=== PATIENT | female | born 1965 | race Caucasian/White ===

== ENCOUNTER → 2017-08-17 | Outpatient (CLI) | payer OTHER ==
[~2017-08-17] MED LIST: CARAFATE1 G1 PO; LEVOFLOXACIN500 MG PO; MOTRIN800 MG PO; OMEPRAZOLE20 MG PO; PEPCID20 MG PO; PYRIDIUM200 MG PO; TENORMIN0.5 MG/ML; TENORMIN25 MG PO; XANAX0.25 MG PO; ZOFRAN4 MG PO
== END | disposition home or self-care (01) ==
LOC: MAMMO 03:02
DX: Z12.31 Encounter for screening mammogram for malignant neoplasm of breast (principal)

== ENCOUNTER → 2018-03-01 | Outpatient (CLI) | payer BC ==
[2018-03-01 14:48] LABS: BASO % 0.2 % (0.0-1.0); EOS # 0.1 10*3/uL (0.0-0.4); EOS % 1.1 % (1.0-4.0); HEMATOCRIT 42.9 % (37.0-47.0); HEMOGLOBIN 13.7 g/dl (12.0-16.0); LYMPH # 1.3 10*3/uL (1.3-4.4); LYMPH % 24.4 % (27.0-41.0); MEAN CELL VOLUME 90.7 fl (81.0-99.0); MEAN CORPUSCULAR HGB CONC 31.9 g/dl (33.0-37.0); MEAN PLATELET VOLUME 9.7 fl (9.6-12.3); MONO # 0.5 10*3/uL (0.1-1.0); MONO % 8.9 % (3.0-9.0); NEUT # 3.5 10*3/uL (2.3-7.9); NEUT % 65.2 % (47.0-73.0); PLATELET COUNT AUTOMATED 253 10*3/uL (130-400); RED BLOOD COUNT 4.73 10*6/uL (4.10-5.10); RED CELL DISTRI WIDTH 12.8 % (0-14.5); WHITE BLOOD COUNT 5.4 10*3/uL (4.8-10.8)
[2018-03-01 15:27] LABS: ALBUMIN 4.1 gm/dl (3.1-4.5); ALKALINE PHOSPHATASE 85 U/L (45-117); BUN 12 mg/dl (7-24); CHLORIDE 102 mmol/L (98-107); CREATININE 1.02 mg/dL (0.55-1.02); SGOT/AST 28 IU/L (3-35); SGPT/ALT 40 U/L (12-78); SODIUM 139 mmol/L (136-145); TOTAL PROTEIN 7.5 gm/dL (6.4-8.2)
== END | disposition home or self-care (01) ==
LOC: RESCLI 08:20 → LAB 08:20
PROVIDERS: Internal Medicine
DX: Z76.89 Persons encountering health services in other specified circumstances (principal); R00.2 Palpitations; R79.89 Other specified abnormal findings of blood chemistry

== ENCOUNTER → 2018-03-22 | Outpatient (CLI) | payer BC | END | disposition home or self-care (01) | LOC: RESCLI 03:16 | DX: Z12.11 Encounter for screening for malignant neoplasm of colon (principal); Z12.31 Encounter for screening mammogram for malignant neoplasm of breast; R00.1 Bradycardia, unspecified; E78.00 Pure hypercholesterolemia, unspecified; G56.01 Carpal tunnel syndrome, right upper limb; R00.2 Palpitations; F41.9 Anxiety disorder, unspecified; Z90.710 Acquired absence of both cervix and uterus; Z90.49 Acquired absence of other specified parts of digestive tract ==

== ENCOUNTER → 2019-02-22 | Outpatient (CLI) | payer BC, OTHER | END | disposition home or self-care (01) | LOC: RESCLI 01:29 | DX: Z12.11 Encounter for screening for malignant neoplasm of colon (principal); S46.011D Strain of muscle(s) and tendon(s) of the rotator cuff of right shoulder, subsequent encounter; E66.3 Overweight; K21.9 Gastro-esophageal reflux disease without esophagitis; I47.1 Supraventricular tachycardia; E78.00 Pure hypercholesterolemia, unspecified; R73.03 Prediabetes; E55.9 Vitamin D deficiency, unspecified; R09.81 Nasal congestion; X58.XXXD Exposure to other specified factors, subsequent encounter ==

== ENCOUNTER → 2019-03-27 | Outpatient (CLI) | payer BC, OTHER | END | disposition home or self-care (01) | LOC: MAMMO 10:05 | DX: Z12.31 Encounter for screening mammogram for malignant neoplasm of breast (principal) ==

== ENCOUNTER → 2019-08-24 | Outpatient (CLI) | payer BC, OTHER | END | disposition home or self-care (01) | LOC: ORTHO 00:11 | DX: M25.511 Pain in right shoulder (principal); M79.601 Pain in right arm ==

== ENCOUNTER → 2019-10-08 | Outpatient (CLI) | payer BC, OTHER | END | disposition home or self-care (01) | LOC: LAB 08:44 → RAD 09:00 | DX: Z13.820 Encounter for screening for osteoporosis (principal); M85.80 Other specified disorders of bone density and structure, unspecified site; E55.9 Vitamin D deficiency, unspecified; G89.29 Other chronic pain; Z78.0 Asymptomatic menopausal state; Z90.710 Acquired absence of both cervix and uterus ==

== ENCOUNTER → 2019-12-13 | Outpatient (CLI) | payer BC, OTHER ==
[2019-12-13 06:32] LABS: BASO % 0.5 % (0.0-1.0); EOS # 0.2 10*3/uL (0.0-0.4); HEMATOCRIT 41.6 % (37.0-47.0); HEMOGLOBIN 13.2 g/dl (12.0-16.0); LYMPH % 26.7 % (27.0-41.0); MEAN CELL VOLUME 93.5 fl (81.0-99.0); MEAN CORPUSCULAR HGB 29.7 pg (27.0-31.0); MEAN CORPUSCULAR HGB CONC 31.7 g/dl (33.0-37.0); MONO # 0.4 10*3/uL (0.1-1.0); MONO % 10.4 % (3.0-9.0); NEUT # 2.2 10*3/uL (2.3-7.9); NEUT % 58.1 % (47.0-73.0); PLATELET COUNT AUTOMATED 273 10*3/uL (130-400); RED BLOOD COUNT 4.45 10*6/uL (4.10-5.10); RED CELL DISTRI WIDTH 12.4 % (0-14.5); WHITE BLOOD COUNT 3.7 10*3/uL (4.8-10.8)
[2019-12-13 06:43] LABS: ALBUMIN 3.7 gm/dl (3.1-4.5); ALKALINE PHOSPHATASE 82 U/L (45-117); BUN 17 mg/dl (7-24); CHLORIDE 106 mmol/L (98-107); CREATININE 0.95 mg/dL (0.55-1.02); POTASSIUM 4.1 mmol/L (3.5-5.1); SGOT/AST 18 IU/L (3-35); SGPT/ALT 24 U/L (12-78); SODIUM 140 mmol/L (136-145); TOTAL PROTEIN 7.3 gm/dL (6.4-8.2)
[2019-12-13 06:45] LABS: FREE T4 0.83 ng/dl (0.76-1.46)
[2019-12-13 06:51] LABS: THYROID STIM HORMONE (HS) 2.29 uIU/ml (0.358-4.75)
[2019-12-13 08:06] LABS: BILIRUBIN NEGATIVE (NEGATIVE); BLOOD NEGATIVE (NEGATIVE); CLARITY SL CLOUDY (CLEAR); COLOR YELLOW (YELLOW); GLUCOSE NEGATIVE (NEGATIVE); KETONE NEGATIVE (NEGATIVE); LEUKO ESTERASE NEGATIVE (NEGATIVE); NITRITE NEGATIVE (NEGATIVE); PH 6.5 (5.0-9.0); SPECIFIC GRAVITY 1.015 (1.005-1.030); UROBILINOGEN 0.2 E.U./dl (0.2-1.0)
[2019-12-13 08:45] LABS: VITAMIN D, 25-HYDROXY 34.4 ng/mL (30-100)
== END | disposition home or self-care (01) ==
LOC: LAB 05:17
PROVIDERS: Internal Medicine; Orthopaedic Surgery
DX: Z13.1 Encounter for screening for diabetes mellitus (principal); E55.9 Vitamin D deficiency, unspecified; M75.21 Bicipital tendinitis, right shoulder; I10 Essential (primary) hypertension; E78.2 Mixed hyperlipidemia

== ENCOUNTER 2020-02-05 11:21 | Inpatient (IN) | payer BC, OTHER ==
[~2020-02-05] VITALS: Ht 165.1 cm; Wt 75.0 kg
[2020-02-05 11:21] VITALS: BP 147/65
[2020-02-05 12:17] LABS: BASO % 0.5 % (0.0-1.0); EOS # 0.1 10*3/uL (0.0-0.4); EOS % 1.8 % (1.0-4.0); HEMATOCRIT 46.1 % (37.0-47.0); LYMPH % 25.1 % (27.0-41.0); MEAN CELL VOLUME 91.7 fl (81.0-99.0); MEAN CORPUSCULAR HGB 29.2 pg (27.0-31.0); MEAN CORPUSCULAR HGB CONC 31.9 g/dl (33.0-37.0); MONO # 0.3 10*3/uL (0.1-1.0); MONO % 7.6 % (3.0-9.0); NEUT # 2.5 10*3/uL (2.3-7.9); NEUT % 64.7 % (47.0-73.0); PLATELET COUNT AUTOMATED 241 10*3/uL (130-400); RED BLOOD COUNT 5.03 10*6/uL (4.10-5.10); RED CELL DISTRI WIDTH 12.5 % (0-14.5); WHITE BLOOD COUNT 3.8 10*3/uL (4.8-10.8)
[2020-02-05 12:21] VITALS: BP 127/50
[2020-02-05 12:28] LABS: ACT PARTIAL THROMBO TIME 26.2 SECONDS (20.0-32.1); INTERNATIONAL NORM RATIO 0.9 (2.0-3.5)
[2020-02-05 12:32] LABS: BILIRUBIN NEGATIVE (NEGATIVE); BLOOD NEGATIVE (NEGATIVE); CLARITY CLEAR (CLEAR); COLOR YELLOW (YELLOW); GLUCOSE NEGATIVE (NEGATIVE); KETONE NEGATIVE (NEGATIVE); LEUKO ESTERASE 2+ (NEGATIVE); NITRITE NEGATIVE (NEGATIVE); PH 6.5 (5.0-9.0); UROBILINOGEN 0.2 E.U./dl (0.2-1.0)
[2020-02-05 12:34] LABS: ALBUMIN 3.9 gm/dl (3.1-4.5); ALKALINE PHOSPHATASE 76 U/L (45-117); BUN 9 mg/dl (7-24); CHLORIDE 105 mmol/L (98-107); CREATININE 1.03 mg/dL (0.55-1.02); LIPASE 125 U/L (73-393); POTASSIUM 3.3 mmol/L (3.5-5.1); SGOT/AST 16 IU/L (3-35); SGPT/ALT 29 U/L (12-78); SODIUM 138 mmol/L (136-145); TOTAL PROTEIN 7.8 gm/dL (6.4-8.2)
[2020-02-05 12:35] LABS: BACTERIA 1+
[2020-02-05 12:36] LABS: TROPONIN I < 0.015 ng/ml (<0.045)
--- NOTE | 2020-02-05 13:17 | NUR ---
I LET THE DOCTOR KNOW THAT THE PT RECENTLY HAD SURGERY ON HER RIGHT UPPER ARM AND THAT THE UPPER ARM IS SWOLLEN. THE PATIENT HAS BEEN DOING THERAPY ON THE ARM AND IS UNSURE IF THAT IS RELEATED TO THE EDEMA. THE DOCTOR IS GOING TO ORDER A CTA OF THE CHEST TO R/O DVT/PE. THE PATIENT WAS NOTIFIED OF THE DOCTORS DECISION.
--- NOTE | 2020-02-05 14:43 | NUR ---
THE PT IS RESTING ON THE BED. NO NEW VOICED C/O. I LET HER KNOW THAT WHEN THE CT RESULTS RETURN I WILL LET HER DOCTOR KNOW SO SHE CAN RECIEVE THE RESULTS. VERBAL UNDERSTANDING NOTED
--- NOTE | 2020-02-05 15:24 | NUR ---
A SECOND LITER OF 0.9NS TO GIVEN TO THE PATIENT. WHEN THE FLUIDS ARE DONE I WILL REPEAT ORTHO STATIC BLOOD PRESSURE READINGS
[2020-02-05 15:25] VITALS: BP 127/48
--- NOTE | 2020-02-05 16:01 | NUR ---
THE PATIENT IS RESTING ON THE BED WATCHING TV. NO NEW VOICED C/O. CALL LIGHT IS ATTACHED TO THE BED RAIL
--- NOTE | 2020-02-05 17:34 | NUR ---
A DINNER TRAY WAS ORDERED
[2020-02-05 20:00] VITALS: BP 121/58
--- NOTE | 2020-02-05 20:00 | NUR ---
A 54, admitted to , under the services of IRINEO Mays MD with a diagnosis of DIZZINESS, NAUSEA. Chief complaint is DIZZINESS. Patient arrived via ambulatory from ER. Monitor applied. Initial assessment completed. Vital signs taken and recorded. IRINEO MAYS MD notified of admission to the unit. Orders received. See assessment for past medical history, medications and allergies. Patient and/or family oriented to unit. visitation policy reviewed. Clothing/patient valuable form completed. MARA LÓPEZ
[2020-02-05] MEDS ORDERED: FOSAMAX70 M1 PO (20:54)
[2020-02-05] MEDS ORDERED: CALCIUM 500 +1 EAC3 PO (20:54)
[2020-02-05] MEDS ORDERED: ASPIRIN ADULT L81 M1 PO (20:55)
[2020-02-05] MEDS ORDERED: FISH OIL 1,0001 EAC1 PO (20:55)
[2020-02-05] MEDS ORDERED: UNISOM25 M1 PO (20:56)
[2020-02-05] MEDS ORDERED: VITAMIN C500 M4 PO (20:56)
[2020-02-06] VITALS: BP 122/61
[2020-02-06 08:00] VITALS: BP 140/64
[2020-02-06 09:00] VITALS: BP 104/62
[2020-02-06 12:00] VITALS: BP 105/56
--- NOTE | 2020-02-06 12:39 | NUR ---
HR 40'S AND REGULAR WHILE PATIENT ASLEEP.
--- NOTE | 2020-02-06 13:11 | NUR ---
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 Patient states lives at HOME with . There are BASEMENT steps in the home. Physician: [facility] Pharmacy: [facility] health services: [facility] CURRENTLY DUE TO ARM SURGERY Patient's level of ADLs: INDEPENDENT Patient has working utilities: YES DME: NONE Follow-up physician's appointment after d/c: PREFERS TO MAKE OWN AFTER DISCHARGE Does patient want to access PORTAL?: NO Discharge plan PT LIVES AT HOME WITH HER AND IS INDEPENDENT IN HER CARE. DENIES SHE WILL HAVE NEEDS ON DISCHARGE. PLANS TO RETURN HOME WITH WHEN MEDICALLY STABLE. WILL CONTINUE TO FOLLOW. STATES HER WILL TAKE HER HOME ON DISCHARGE.. MARY BETH TSANG
--- NOTE | 2020-02-06 15:16 | NUR ---
RESUME HH ORDER FAXED TO [facility].
[2020-02-06 20:00] VITALS: BP 107/50
[2020-02-07] VITALS: BP 114/57
--- NOTE | 2020-02-07 05:41 | NUR ---
PATIENT MEDICATED WITH VISTARIL PER HER REQUEST FOR COMPLAINTS OF A HEADACHE. SHE BELIEVES IT WILL HELP HER HEADACHE. WILL CONTINUE TO MONITOR.
[2020-02-07 06:14] LABS: BASO % 0.2 % (0.0-1.0); EOS # 0.2 10*3/uL (0.0-0.4); EOS % 4.7 % (1.0-4.0); HEMATOCRIT 39.3 % (37.0-47.0); LYMPH # 1.3 10*3/uL (1.3-4.4); LYMPH % 33.2 % (27.0-41.0); MEAN CORPUSCULAR HGB 29.7 pg (27.0-31.0); MEAN CORPUSCULAR HGB CONC 32.3 g/dl (33.0-37.0); MEAN PLATELET VOLUME 10.2 fl (9.6-12.3); MONO # 0.4 10*3/uL (0.1-1.0); MONO % 10.4 % (3.0-9.0); NEUT # 2.1 10*3/uL (2.3-7.9); NEUT % 51.3 % (47.0-73.0); PLATELET COUNT AUTOMATED 218 10*3/uL (130-400); RED BLOOD COUNT 4.27 10*6/uL (4.10-5.10); RED CELL DISTRI WIDTH 12.6 % (0-14.5)
[2020-02-07 06:42] LABS: BUN 8 mg/dl (7-24); CHLORIDE 112 mmol/L (98-107); POTASSIUM 3.9 mmol/L (3.5-5.1); SODIUM 142 mmol/L (136-145)
[2020-02-07 08:00] VITALS: BP 111/63
--- NOTE | 2020-02-07 09:40 | NUR ---
PT GIVEN PO ULTRAM PER ORDER FOR C/O HEADACHE. ALSO GIVEN IV ZOFRAN PER PRN ORDER FOR NAUSEA WITH PAIN MEDICATION. WILL MONITOR EFFECTIVENESS. VSS. CALL LIGHT WITHIN REACH.
--- NOTE | 2020-02-07 10:00 | NUR ---
Nursing screen received and chart reviewed. Patient admitted with dizziness, had a recent bicipital tendon repair, and has an MRA of the neck pending. If patient has a decline in ADLs, functional transfers, or mobility, please send OT when medically appropriate. Thank you. Misa Godoy, OTR/L
--- NOTE | 2020-02-07 10:04 | NUR ---
PATIENT TAKEN OFF FLOOR FOR SCHEDULED MRA.
[2020-02-07 12:00] VITALS: BP 116/61
--- NOTE | 2020-02-07 13:07 | NUR ---
Physical Therapy evaluation completed on 4th floor with full evaluation to follow. Recommend physical therapy per plan of care and home with family with follow up HH upon discharge. Thank you for this referral. Maura España PT
--- NOTE | 2020-02-07 15:00 | NUR ---
PATIENT RESTING. IVF MAINTAINED. DENIES ANY DIZZINESS AT THIS TIME. WILL CONTINUE TO MONITOR. CALL LIGHT WITHIN REACH.
[2020-02-07 16:00] VITALS: BP 109/52
[2020-02-07 20:00] VITALS: BP 128/56
[2020-02-08] VITALS: BP 121/60
[2020-02-08 06:05] LABS: BASO % 0.2 % (0.0-1.0); EOS # 0.1 10*3/uL (0.0-0.4); EOS % 2.7 % (1.0-4.0); HEMATOCRIT 37.3 % (37.0-47.0); LYMPH # 1.1 10*3/uL (1.3-4.4); LYMPH % 23.6 % (27.0-41.0); MEAN CORPUSCULAR HGB 29.3 pg (27.0-31.0); MEAN CORPUSCULAR HGB CONC 32.2 g/dl (33.0-37.0); MEAN PLATELET VOLUME 10.4 fl (9.6-12.3); MONO # 0.5 10*3/uL (0.1-1.0); MONO % 9.4 % (3.0-9.0); NEUT # 3.1 10*3/uL (2.3-7.9); NEUT % 63.9 % (47.0-73.0); PLATELET COUNT AUTOMATED 214 10*3/uL (130-400); RED CELL DISTRI WIDTH 12.5 % (0-14.5); WHITE BLOOD COUNT 4.8 10*3/uL (4.8-10.8)
--- NOTE | 2020-02-08 06:22 | NUR ---
PATIENT RESTING IN BED AWAKE MOST OF SHIFT. HR RANGING FROM 38 TO MID 40'S THROUGH THE NIGHT. ORTHOS NEGATIVE. WILL CONTINUE TO MONITOR. CALL LIGHT IN REACH.
[2020-02-08 06:31] LABS: BUN 10 mg/dl (7-24); CHLORIDE 110 mmol/L (98-107); POTASSIUM 3.8 mmol/L (3.5-5.1); SODIUM 141 mmol/L (136-145)
[2020-02-08 06:34] LABS: CREATININE 0.72 mg/dL (0.55-1.02)
[2020-02-08 08:00] VITALS: BP 134/72
[2020-02-08] MEDS ORDERED: Flonase 0.05% 120 Me NAS (08:19)
[2020-02-08] MEDS ORDERED: MECLIZINE HYD12.5 MG PO (08:19)
[2020-02-08] MEDS ORDERED: PREDNISONE5 MG PO (08:19)
[2020-02-08] MEDS ORDERED: AUGMENTIN 875875 MG PO (08:19)
--- NOTE | 2020-02-08 08:30 | NUR ---
PHYSICAL THERAPY Patient seen this am 1:1 for therapy visit and was coming out of her bathroom upon therapist arrival. Patient identified by name / and presented with continuous IV treatment. Nurse arrived and was present for observation only as patient ambulated without AD, Independent, no LOB, 40'x 1 ad jamil in room, voicing no new c/o's. Patient reports only mild R shoulder discomfort, however no c/o of dizziness this session while returning to EOB sit and remained under nursing Supervision. Will continue per POC as tolerated, total treatment time 13 minutes. Miguel Ayala, CLIENT FINANCE ANALYST
--- NOTE | 2020-02-08 09:15 | NUR ---
PT DISCHARGED HOME AT THIS TIME. 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 DISCHARGE INSTRUCTIONA REVIEWED. PT INSTRUCTED TO CALL OFFICE FOR APPT AND STOP IN [facility] TO LICENSING WORKER PRESCRIPTIONS.
--- NOTE | 2020-02-08 09:16 | NUR ---
Faxed discharge information to [facility]
--- NOTE | 2020-02-08 12:56 | NUR ---
PHYSICAL THERAPY CO-SIGN I approve of the Physical Therapy notes written above. MELECIO PIMENTEL PT, DPT
== END 2020-02-08 09:15 | disposition home health service (06) | DRG 683 ==
LOC: ED 11:21 → EDHOLD 18:54 → 4E 18:54
PROVIDERS: Emergency Medicine; ADMIT Internal Medicine
DX: N17.9 Acute kidney failure, unspecified (principal); E87.2 Acidosis; I95.1 Orthostatic hypotension; E87.6 Hypokalemia; H81.23 Vestibular neuronitis, bilateral; K21.9 Gastro-esophageal reflux disease without esophagitis; R00.1 Bradycardia, unspecified; T50.995A Adverse effect of other drugs, medicaments and biological substances, initial encounter; Y92.89 Other specified places as the place of occurrence of the external cause; Z88.2 Allergy status to sulfonamides; Z88.4 Allergy status to anesthetic agent; Z91.041 Radiographic dye allergy status; Z91.040 Latex allergy status; Z90.49 Acquired absence of other specified parts of digestive tract; Z90.710 Acquired absence of both cervix and uterus

== ENCOUNTER → 2020-03-01 | Outpatient (CLI) | payer BC, OTHER ==
[~2020-03-01] MED LIST changes: +ASPIRIN ADULT L81 M1 PO; +AUGMENTIN 875875 MG PO; +CALCIUM 500 +1 EAC3 PO; +FISH OIL 1,0001 EAC1 PO; +FOSAMAX70 M1 PO; +Flonase 0.05% 120 Me NAS; +MECLIZINE HYD12.5 MG PO; +PREDNISONE5 MG PO; +UNISOM25 M1 PO; +VITAMIN C500 M4 PO
[2020-03-01 10:25] LABS: BASO % 0.5 % (0.0-1.0); EOS # 0.1 10*3/uL (0.0-0.4); EOS % 3.2 % (1.0-4.0); HEMATOCRIT 44.8 % (37.0-47.0); LYMPH # 1.2 10*3/uL (1.3-4.4); LYMPH % 31.1 % (27.0-41.0); MEAN CELL VOLUME 91.4 fl (81.0-99.0); MEAN CORPUSCULAR HGB CONC 31.7 g/dl (33.0-37.0); MEAN PLATELET VOLUME 9.8 fl (9.6-12.3); MONO # 0.3 10*3/uL (0.1-1.0); MONO % 8.6 % (3.0-9.0); NEUT # 2.1 10*3/uL (2.3-7.9); NEUT % 56.3 % (47.0-73.0); PLATELET COUNT AUTOMATED 267 10*3/uL (130-400); RED CELL DISTRI WIDTH 12.8 % (0-14.5); WHITE BLOOD COUNT 3.7 10*3/uL (4.8-10.8)
[2020-03-01 10:32] LABS: BACTERIA TRACE; BILIRUBIN NEGATIVE (NEGATIVE); BLOOD NEGATIVE (NEGATIVE); CLARITY CLEAR (CLEAR); COLOR YELLOW (YELLOW); GLUCOSE NEGATIVE (NEGATIVE); KETONE NEGATIVE (NEGATIVE); LEUKO ESTERASE 1+ (NEGATIVE); NITRITE NEGATIVE (NEGATIVE); UROBILINOGEN 0.2 E.U./dl (0.2-1.0)
[2020-03-01 10:54] LABS: ALBUMIN 3.5 gm/dl (3.1-4.5); ALKALINE PHOSPHATASE 77 U/L (45-117); BUN 10 mg/dl (7-24); CHLORIDE 106 mmol/L (98-107); CREATININE 1.04 mg/dL (0.55-1.02); POTASSIUM 3.9 mmol/L (3.5-5.1); SGOT/AST 38 IU/L (3-35); SGPT/ALT 81 U/L (12-78); SODIUM 140 mmol/L (136-145); TOTAL PROTEIN 7.3 gm/dL (6.4-8.2)
== END ==
LOC: LAB 09:47
PROVIDERS: Orthopaedic Surgery
DX: M75.21 Bicipital tendinitis, right shoulder (principal)

== ENCOUNTER → 2020-08-29 | Outpatient (CLI) | payer BC, OTHER ==
[~2020-08-29] MED LIST changes: +CITRACAL-D3 201 EACH PO; +GABAPENTIN100 M2 PO; +OMEPRAZOLE20 M2 PO; +PROPRANOLOL HCL60 MG PO
[2020-08-29 08:49] LABS: BASO % 0.6 % (0.0-1.0); EOS # 0.1 10*3/uL (0.0-0.4); EOS % 3.4 % (1.0-4.0); HEMATOCRIT 43.4 % (37.0-47.0); LYMPH % 28.2 % (27.0-41.0); MEAN CELL VOLUME 91.9 fl (81.0-99.0); MEAN CORPUSCULAR HGB 28.8 pg (27.0-31.0); MEAN CORPUSCULAR HGB CONC 31.3 g/dl (33.0-37.0); MEAN PLATELET VOLUME 9.7 fl (9.6-12.3); MONO # 0.4 10*3/uL (0.1-1.0); NEUT % 57.5 % (47.0-73.0); PLATELET COUNT AUTOMATED 309 10*3/uL (130-400); RED BLOOD COUNT 4.72 10*6/uL (4.10-5.10); RED CELL DISTRI WIDTH 12.4 % (0-14.5); WHITE BLOOD COUNT 3.5 10*3/uL (4.8-10.8)
[2020-08-29 08:53] LABS: BILIRUBIN Negative (Negative); BLOOD Negative (Negative); CLARITY Clear (Clear); COLOR Yellow (Yellow); GLUCOSE Negative (Negative); KETONE Negative (Negative); LEUKO ESTERASE Trace (Negative); NITRITE Negative (Negative); UROBILINOGEN 0.2 E.U./dl (0.0-1.0)
[2020-08-29 09:10] LABS: BACTERIA TRACE; RBC 0-2 rbc/hpf (0-2); WBC 0-2 wbc/hpf (0-5)
[2020-08-29 09:19] LABS: ALBUMIN 3.7 gm/dl (3.1-4.5); ALKALINE PHOSPHATASE 79 U/L (45-117); BUN 12 mg/dl (7-24); CHLORIDE 106 mmol/L (98-107); CREATININE 1.06 mg/dL (0.55-1.02); SGOT/AST 17 IU/L (3-35); SGPT/ALT 23 U/L (12-78); SODIUM 142 mmol/L (136-145); TOTAL PROTEIN 7.4 gm/dL (6.4-8.2)
== END | disposition home or self-care (01) ==
LOC: LAB 08:25
PROVIDERS: ATTEND Orthopaedic Surgery
DX: G56.21 Lesion of ulnar nerve, right upper limb (principal)

== ENCOUNTER → 2020-09-02 | Outpatient (CLI) | payer BC, OTHER ==
--- NOTE | 2020-09-02 09:45 | NUR ---
INFORMED CONSENT OBTAINED FOR LEXISCAN NUCLEAR STRESS TEST WITH DR. FOWLER. RESTING EKG SINUS ERIC WITH A RESTING HR OF 56 WITH BP OF 130/74. LUNGS CLEAR WITH SPO2 OF 100% ON ROOM AIR. PT COMPLETED A 1:00 LEXISCAN PROTOCOL RECEIVING LEXISCAN 0.4 MG IV OVER [address] DEPRESSION IN LEADS II,III,AVF AND V3-V6. HAD NO CHEST PAIN. DID C/O FEELING SHORTNESS OF BREATH AND "HOT FLASH" THAT RESOLVED IN RECOVERY. HAD A PEAK HR OF 120 WITH BP OF 150/78. LAST RECOVERY HR OF 88 WITH BP OF 138/74. AWAITING SCANNING IN STABLE CONDITION.
== END | disposition home or self-care (01) ==
LOC: CARD 02:00
PROVIDERS: ATTEND Internal Medicine
DX: R94.31 Abnormal electrocardiogram [ECG] [EKG] (principal)

== ENCOUNTER 2021-05-07 21:39 | Emergency (ER) | payer BC ==
[~2021-05-07] VITALS: Ht 165.1 cm; Wt 72.6 kg
[2021-05-08] MEDS ORDERED: METHOCARBAMOL500 M1 PO (00:01)
[2021-05-08] MEDS ORDERED: NAPROXEN250 MG PO (00:01)
== END 2021-05-08 00:16 | disposition home or self-care (01) ==
LOC: ED 21:39
DX: S16.1XXA Strain of muscle, fascia and tendon at neck level, initial encounter (principal); S00.83XA Contusion of other part of head, initial encounter; M25.512 Pain in left shoulder; M79.605 Pain in left leg; Z88.2 Allergy status to sulfonamides; Z91.041 Radiographic dye allergy status; Z88.6 Allergy status to analgesic agent; Z91.040 Latex allergy status; Z79.899 Other long term (current) drug therapy; Z98.890 Other specified postprocedural states; Z90.711 Acquired absence of uterus with remaining cervical stump; W18.09XA Striking against other object with subsequent fall, initial encounter; Y93.89 Activity, other specified; Y92.89 Other specified places as the place of occurrence of the external cause; Y99.8 Other external cause status

== ENCOUNTER → 2021-05-18 | Outpatient (CLI) | payer BC ==
[~2021-05-18] MED LIST changes: +METHOCARBAMOL500 M1 PO; +NAPROXEN250 MG PO
== END | disposition home or self-care (01) ==
LOC: US 05-08 07:30
PROVIDERS: ATTEND Internal Medicine
DX: K76.89 Other specified diseases of liver (principal); Z90.49 Acquired absence of other specified parts of digestive tract; Z90.710 Acquired absence of both cervix and uterus; Z90.722 Acquired absence of ovaries, bilateral

== ENCOUNTER → 2021-08-18 | Outpatient (CLI) | payer BC | END | disposition home or self-care (01) | LOC: US 08-17 08:30 | PROVIDERS: ATTEND Internal Medicine | DX: K76.9 Liver disease, unspecified (principal); Z90.49 Acquired absence of other specified parts of digestive tract ==

== ENCOUNTER → 2021-09-29 | Outpatient (CLI) | payer BC ==
[2021-09-29 09:44] LABS: BASO % 0.5 % (0.0-1.0); EOS # 0.1 10*3/uL (0.0-0.4); EOS % 1.9 % (1.0-4.0); HEMATOCRIT 43.1 % (37.0-47.0); LYMPH # 1.2 10*3/uL (1.3-4.4); LYMPH % 28.7 % (27.0-41.0); MEAN CELL VOLUME 93.5 fl (81.0-99.0); MEAN CORPUSCULAR HGB 29.9 pg (27.0-31.0); MEAN PLATELET VOLUME 10.1 fl (9.6-12.3); MONO # 0.5 10*3/uL (0.1-1.0); MONO % 11.2 % (3.0-9.0); NEUT # 2.5 10*3/uL (2.3-7.9); NEUT % 57.5 % (47.0-73.0); PLATELET COUNT AUTOMATED 271 10*3/uL (130-400); RED BLOOD COUNT 4.61 10*6/uL (4.10-5.10); WHITE BLOOD COUNT 4.3 10*3/uL (4.8-10.8)
[2021-09-29 10:05] LABS: ALBUMIN 3.8 gm/dl (3.1-4.5); ALKALINE PHOSPHATASE 75 U/L (45-117); BUN 13 mg/dl (7-24); CHLORIDE 107 mmol/L (98-107); CREATININE 1.04 mg/dL (0.55-1.02); POTASSIUM 4.1 mmol/L (3.5-5.1); SGOT/AST 22 IU/L (3-35); SGPT/ALT 31 U/L (12-78); SODIUM 139 mmol/L (136-145); TOTAL PROTEIN 7.7 gm/dL (6.4-8.2)
== END | disposition home or self-care (01) ==
LOC: LAB 05:32
PROVIDERS: ATTEND Orthopaedic Surgery
DX: Z01.818 Encounter for other preprocedural examination (principal); G56.21 Lesion of ulnar nerve, right upper limb

== ENCOUNTER → 2022-04-13 | Outpatient (CLI) | payer BC | END | disposition home or self-care (01) | LOC: RAD 16:04 | PROVIDERS: ATTEND Internal Medicine | DX: S22.31XA Fracture of one rib, right side, initial encounter for closed fracture (principal); X58.XXXA Exposure to other specified factors, initial encounter; Y93.89 Activity, other specified; Y92.89 Other specified places as the place of occurrence of the external cause; Y99.8 Other external cause status ==

== ENCOUNTER 2022-05-20 19:24 | Emergency (ER) | payer BC ==
[~2022-05-20] VITALS: Ht 165.1 cm; Wt 72.6 kg
[2022-05-20 20:44] LABS: BASO % 0.4 % (0.0-1.0); EOS # 0.1 10*3/uL (0.0-0.4); EOS % 2.5 % (1.0-4.0); HEMATOCRIT 43.4 % (37.0-47.0); LYMPH % 18.6 % (27.0-41.0); MEAN CELL VOLUME 90.2 fl (81.0-99.0); MEAN CORPUSCULAR HGB 29.1 pg (27.0-31.0); MEAN CORPUSCULAR HGB CONC 32.3 g/dl (33.0-37.0); MEAN PLATELET VOLUME 9.5 fl (9.6-12.3); MONO # 0.5 10*3/uL (0.1-1.0); MONO % 9.4 % (3.0-9.0); NEUT # 3.5 10*3/uL (2.3-7.9); NEUT % 68.5 % (47.0-73.0); PLATELET COUNT AUTOMATED 290 10*3/uL (130-400); RED BLOOD COUNT 4.81 10*6/uL (4.10-5.10); WHITE BLOOD COUNT 5.1 10*3/uL (4.8-10.8)
[2022-05-20 20:57] LABS: INTERNATIONAL NORM RATIO 0.9 (2.0-3.5)
[2022-05-20 20:59] LABS: ALKALINE PHOSPHATASE 122 U/L (45-117); BUN 15 mg/dl (7-24); CHLORIDE 105 mmol/L (98-107); CREATININE 1.12 mg/dL (0.55-1.02); POTASSIUM 3.4 mmol/L (3.5-5.1); SGOT/AST 25 IU/L (3-35); SGPT/ALT 26 U/L (12-78); SODIUM 138 mmol/L (136-145); TOTAL PROTEIN 7.2 gm/dL (6.4-8.2)
== END 2022-05-20 22:25 | disposition home or self-care (01) ==
LOC: ED 19:24
PROVIDERS: Emergency Medicine
DX: I10 Essential (primary) hypertension (principal); R00.0 Tachycardia, unspecified; Z88.2 Allergy status to sulfonamides; Z91.040 Latex allergy status; Z88.6 Allergy status to analgesic agent; Z79.899 Other long term (current) drug therapy; Z90.710 Acquired absence of both cervix and uterus; Z90.49 Acquired absence of other specified parts of digestive tract; Z98.890 Other specified postprocedural states

== ENCOUNTER 2022-12-28 22:37 | Emergency (ER) | payer BC, OTHER ==
[~2022-12-28] VITALS: Ht 165.1 cm; Wt 70.3 kg
[2022-12-28 23:32] LABS: BASO % 0.4 % (0.0-1.0); EOS # 0.1 10*3/uL (0.0-0.4); HEMATOCRIT 41.5 % (37.0-47.0); LYMPH # 1.3 10*3/uL (1.3-4.4); LYMPH % 25.4 % (27.0-41.0); MEAN CELL VOLUME 92.4 fl (81.0-99.0); MEAN CORPUSCULAR HGB 29.6 pg (27.0-31.0); MEAN PLATELET VOLUME 10.5 fl (9.6-12.3); MONO # 0.6 10*3/uL (0.1-1.0); MONO % 11.2 % (3.0-9.0); NEUT # 3.1 10*3/uL (2.3-7.9); NEUT % 60.6 % (47.0-73.0); PLATELET COUNT AUTOMATED 283 10*3/uL (130-400); RED BLOOD COUNT 4.49 10*6/uL (4.10-5.10); RED CELL DISTRI WIDTH 13.2 % (0-14.5); WHITE BLOOD COUNT 5.1 10*3/uL (4.8-10.8)
[2022-12-28 23:40] LABS: BILIRUBIN Negative (Negative); BLOOD Negative (Negative); CLARITY Clear (Clear); COLOR Yellow (Yellow); GLUCOSE Negative (Negative); KETONE Negative (Negative); LEUKO ESTERASE Negative (Negative); NITRITE Negative (Negative); PH 6.5 (4.5-8.0); SPECIFIC GRAVITY <= 1.005 (1.001-1.030); UROBILINOGEN 0.2 E.U./dl (0.0-1.0)
[2022-12-28 23:47] LABS: RBC 0-2 rbc/hpf (0-2); WBC 0-2 wbc/hpf (0-5)
[2022-12-28 23:48] LABS: ALKALINE PHOSPHATASE 73 U/L (46-116); BUN 12 mg/dl (9-23); CHLORIDE 102 mmol/L (98-107); POTASSIUM 3.8 mmol/L (3.4-5.1); SGPT/ALT 20 U/L (10-49); TOTAL PROTEIN 6.8 gm/dL (6.0-8.0)
[2022-12-28 23:50] LABS: ACT PARTIAL THROMBO TIME 28.1 SECONDS (20.0-32.1)
== END 2022-12-29 00:50 | disposition home or self-care (01) ==
LOC: ED 22:37
PROVIDERS: Internal Medicine
DX: I10 Essential (primary) hypertension (principal); R42 Dizziness and giddiness; K21.9 Gastro-esophageal reflux disease without esophagitis; Z90.49 Acquired absence of other specified parts of digestive tract; Z87.442 Personal history of urinary calculi; Z88.2 Allergy status to sulfonamides; Z91.041 Radiographic dye allergy status; Z91.040 Latex allergy status; Z88.5 Allergy status to narcotic agent; Z90.710 Acquired absence of both cervix and uterus; Z98.890 Other specified postprocedural states

== ENCOUNTER 2023-01-08 08:33 | Emergency (ER) | payer BC, OTHER ==
[~2023-01-08] VITALS: Wt 64.9 kg
[2023-01-08] MEDS ORDERED: AMLODIPINE BESYL5 MG PO (09:13)
[2023-01-08] MEDS ORDERED: PREGABALIN150 MG PO (09:14)
[2023-01-08 09:15] LABS: BASO % 0.4 % (0.0-1.0); EOS % 0.2 % (1.0-4.0); HEMATOCRIT 44.8 % (37.0-47.0); LYMPH % 18.8 % (27.0-41.0); MEAN CELL VOLUME 89.4 fl (81.0-99.0); MEAN CORPUSCULAR HGB 29.9 pg (27.0-31.0); MEAN CORPUSCULAR HGB CONC 33.5 g/dl (33.0-37.0); MEAN PLATELET VOLUME 9.8 fl (9.6-12.3); MONO # 0.4 10*3/uL (0.1-1.0); MONO % 7.7 % (3.0-9.0); NEUT % 72.5 % (47.0-73.0); PLATELET COUNT AUTOMATED 298 10*3/uL (130-400); RED BLOOD COUNT 5.01 10*6/uL (4.10-5.10); RED CELL DISTRI WIDTH 12.6 % (0-14.5); WHITE BLOOD COUNT 5.5 10*3/uL (4.8-10.8)
[2023-01-08 09:32] LABS: ALKALINE PHOSPHATASE 80 U/L (46-116); BUN 9 mg/dl (9-23); CHLORIDE 103 mmol/L (98-107); POTASSIUM 3.8 mmol/L (3.4-5.1); SGPT/ALT 14 U/L (10-49); THYROID STIM HORMONE (HS) 1.477 uIU/ml (0.550-4.780); TOTAL PROTEIN 7.5 gm/dL (6.0-8.0)
[2023-01-08] MEDS ORDERED: TOPROL XL25 MG PO (11:10)
== END 2023-01-08 11:37 | disposition home or self-care (01) ==
LOC: ED 08:33
PROVIDERS: Internal Medicine
DX: R00.0 Tachycardia, unspecified (principal); K21.9 Gastro-esophageal reflux disease without esophagitis; Z87.442 Personal history of urinary calculi; Z90.49 Acquired absence of other specified parts of digestive tract; Z88.2 Allergy status to sulfonamides; Z91.040 Latex allergy status; Z91.041 Radiographic dye allergy status; Z88.6 Allergy status to analgesic agent; Z90.710 Acquired absence of both cervix and uterus; Z98.890 Other specified postprocedural states

== ENCOUNTER → 2023-01-21 | Outpatient (CLI) | payer BC, OTHER ==
[~2023-01-21] MED LIST changes: +AMLODIPINE BESYL5 MG PO; +PREGABALIN150 MG PO; +TOPROL XL25 MG PO
[2023-01-21 10:02] LABS: ALKALINE PHOSPHATASE 73 U/L (46-116); BUN 12 mg/dl (9-23); CHLORIDE 102 mmol/L (98-107); CHOLESTEROL 235 mg/dL (<200); LDL CHOLESTEROL 147 mg/dL (9-159); SGPT/ALT 18 U/L (10-49); TOTAL PROTEIN 7.9 gm/dL (6.0-8.0); TRIGLYCERIDES 76 mg/dl (<150)
[2023-01-22 03:06] LABS: TOTAL PROTEIN, SERUM 7.6 g/dL (6.0-8.5)
[2023-01-24 13:06] LABS: A/G RATIO 1.1 (0.7-1.7); ALPHA-1-GLOBULIN 0.3 g/dL (0.0-0.4); BETA GLOBULIN 1.5 g/dL (0.7-1.3); GAMMA GLOBULIN 0.8 g/dL (0.4-1.8); GLOBULIN, TOTAL 3.6 g/dL (2.2-3.9); M-SPIKE Not Observed g/dL (Not Observed)
== END | disposition home or self-care (01) ==
LOC: LAB 09:14
PROVIDERS: ATTEND Internal Medicine
DX: I47.1 Supraventricular tachycardia (principal)

== ENCOUNTER → 2023-01-31 | Outpatient (CLI) | payer BC, OTHER | END | disposition home or self-care (01) | LOC: LAB 01-28 12:09 | PROVIDERS: ATTEND Nurse Practitioner Family | DX: R00.1 Bradycardia, unspecified (principal); R55 Syncope and collapse; I10 Essential (primary) hypertension; E16.2 Hypoglycemia, unspecified; I99.8 Other disorder of circulatory system; R13.11 Dysphagia, oral phase; R63.4 Abnormal weight loss; Z86.79 Personal history of other diseases of the circulatory system ==

== ENCOUNTER → 2023-09-09 | Outpatient (CLI) | payer BC, OTHER | END | disposition home or self-care (01) | LOC: CT 09-01 15:00 | PROVIDERS: ATTEND Internal Medicine | DX: R91.1 Solitary pulmonary nodule (principal); Z90.49 Acquired absence of other specified parts of digestive tract ==

== ENCOUNTER → 2023-12-16 | Outpatient (CLI) | payer BC ==
[2023-12-16 12:07] LABS: BILIRUBIN Negative (Negative); BLOOD 3+ (Negative); CLARITY Cloudy (Clear); COLOR Yellow (Yellow); GLUCOSE Negative (Negative); KETONE Negative (Negative); LEUKO ESTERASE 1+ (Negative); NITRITE Negative (Negative); PH 5.5 (4.5-8.0); UROBILINOGEN 0.2 E.U./dl (0.0-1.0)
[2023-12-16 12:16] LABS: BACTERIA 2+; RBC TNTC rbc/hpf (0-2); WBC 31-40 wbc/hpf (0-5)
== END | disposition home or self-care (01) ==
LOC: LAB 11:55
PROVIDERS: ATTEND Internal Medicine
DX: N39.0 Urinary tract infection, site not specified (principal)

== ENCOUNTER → 2024-03-05 | Outpatient (CLI) | payer BC | END | disposition home or self-care (01) | LOC: MAMMO 02-27 08:00 → RAD 02-27 08:30 → MAMMO 01:17 | PROVIDERS: ATTEND Internal Medicine | DX: Z12.31 Encounter for screening mammogram for malignant neoplasm of breast (principal); N63.11 Unspecified lump in the right breast, upper outer quadrant; M85.80 Other specified disorders of bone density and structure, unspecified site ==

== ENCOUNTER → 2024-09-08 | Outpatient (CLI) | payer BC ==
[2024-09-08 09:43] LABS: ALKALINE PHOSPHATASE 110 U/L (46-116); BUN 15 mg/dl (9-23); CHLORIDE 103 mmol/L (98-107); SGPT/ALT 18 U/L (5-49); TOTAL PROTEIN 7.5 gm/dL (6.0-8.0)
== END | disposition home or self-care (01) ==
LOC: LAB 01:05
PROVIDERS: ATTEND Orthopaedic Surgery
DX: R53.83 Other fatigue (principal); M25.569 Pain in unspecified knee

== ENCOUNTER → 2024-11-26 | Outpatient (CLI) | payer BC | END | disposition home or self-care (01) | LOC: RAD 14:54 | PROVIDERS: ATTEND Internal Medicine | DX: R05.9 Cough, unspecified (principal); R09.89 Other specified symptoms and signs involving the circulatory and respiratory systems ==

== ENCOUNTER → 2025-07-18 | Outpatient (CLI) | payer BC | END | disposition home or self-care (01) | LOC: MRI 04:03 | PROVIDERS: ATTEND Orthopaedic Surgery | DX: M17.12 Unilateral primary osteoarthritis, left knee (principal); M25.462 Effusion, left knee ==

== ENCOUNTER → 2025-09-13 | Outpatient (CLI) | payer BC ==
[2025-09-13 11:07] LABS: BILIRUBIN Negative (Negative); BLOOD Negative (Negative); CLARITY Clear (Clear); COLOR Yellow (Yellow); KETONE Negative (Negative); LEUKO ESTERASE Trace (Negative); NITRITE Negative (Negative); PH 7.5 (4.5-8.0); SPECIFIC GRAVITY 1.015 (1.001-1.030); UROBILINOGEN 0.2 E.U./dl (0.0-1.0)
[2025-09-13 11:07] LABS: BASO # 0.0 10*3/uL (0.0-0.1); BASO % 0.3 % (0.0-1.0); EOS # 0.1 10*3/uL (0.0-0.4); EOS % 2.2 % (1.0-4.0); MEAN CELL VOLUME 86.5 fl (81.0-99.0); MEAN CORPUSCULAR HGB 27.8 pg (27.0-31.0); MEAN PLATELET VOLUME 9.8 fl (9.6-12.3); MONO # 0.4 10*3/uL (0.1-1.0); MONO % 9.7 % (3.0-9.0); NEUT # 2.3 10*3/uL (2.3-7.9); NEUT % 60.6 % (47.0-73.0); NUCLEATED RED BLOOD CELL 0.0 % (0.0-0.0); NUCLEATED RED BLOOD CELL 0.0 10*3/uL (0.0-0.0); PLATELET COUNT AUTOMATED 312 10*3/uL (130-400); RED CELL DISTRI WIDTH 13.2 % (0-14.5)
[2025-09-13 11:19] LABS: ACT PARTIAL THROMBO TIME 26.8 SECONDS (20.0-32.1)
[2025-09-13 11:21] LABS: BACTERIA TRACE; EPITHELIAL CELLS 0-2; RBC 0-2 rbc/hpf (0-2); WBC 0-2 wbc/hpf (0-5)
[2025-09-13 11:38] LABS: BUN 14 mg/dl (9-23); SGPT/ALT 12 U/L (5-49)
== END | disposition home or self-care (01) ==
LOC: LAB 10:09
PROVIDERS: ATTEND Orthopaedic Surgery
DX: Z01.818 Encounter for other preprocedural examination (principal)